=== PATIENT | female | born 1985 | race Caucasian/White ===

== ENCOUNTER 2024-12-15 09:22 | Emergency (ER) | payer SELFPAY ==
[~2024-12-15] VITALS: Ht 172.7 cm; Wt 90.7 kg
[2024-12-15 09:31] VITALS: PULSE 84; RESP 18; TEMP 97.8; O2SAT 99
[2024-12-15] MEDS ORDERED: PROPRANOLOL HCL40 MG PO (09:42)
[2024-12-15] MEDS ORDERED: CLONAZEPAM1 MG PO (09:42)
== END 2024-12-15 09:47 | disposition home or self-care (01) ==
LOC: ER 09:28
DX: F10.239 Alcohol dependence with withdrawal, unspecified (principal)
CPT/HCPCS: 93005; 99282